=== PATIENT | male | born 2000 | race African-American/Black ===

== ENCOUNTER 2021-12-08 21:23 | Emergency (ER) | payer SELFPAY ==
[2021-12-08 23:29] LABS: CORONAVIRUS COVID-19 NAA NEGATIVE (NEGATIVE); INFLUENZA A NAA NEGATIVE (NEGATIVE); INFLUENZA B NAA NEGATIVE (NEGATIVE)
== END 2021-12-08 23:57 | disposition home or self-care (01) ==
LOC: MW.ED 21:23
DX: J06.9 Acute upper respiratory infection, unspecified (principal); Z20.822 Contact with and (suspected) exposure to COVID-19
CPT/HCPCS: 0240U; 71045; 99283